=== PATIENT | female | born 1945 | race Caucasian/White ===

== ENCOUNTER → 2016-09-19 | Outpatient (CLI) | payer MEDICARE | LOC: COL.RAD 07:30 | DX: M51.36 Other intervertebral disc degeneration, lumbar region (principal) ==

== ENCOUNTER → 2016-10-11 | Outpatient (CLI) | payer MEDICARE | LOC: MHCPAIN 10:08 | DX: G89.29 Other chronic pain (principal); M47.817 Spondylosis without myelopathy or radiculopathy, lumbosacral region; M54.16 Radiculopathy, lumbar region; M25.561 Pain in right knee | CPT/HCPCS: G0463 ==

== ENCOUNTER → 2017-01-10 | Outpatient (CLI) | payer MEDICARE | LOC: MHCPAIN 10:05 | DX: G89.29 Other chronic pain (principal); M47.27 Other spondylosis with radiculopathy, lumbosacral region; M53.3 Sacrococcygeal disorders, not elsewhere classified | CPT/HCPCS: G0463 ==

== ENCOUNTER 2017-01-17 10:30 | Outpatient (RCR) | payer MEDICARE | END 2017-01-23 | LOC: WSPT | DX: M47.816 Spondylosis without myelopathy or radiculopathy, lumbar region (principal); M25.569 Pain in unspecified knee; M25.511 Pain in right shoulder; M25.512 Pain in left shoulder | CPT/HCPCS: G8978-GP; G8979-GP; G8980-GP ==

== ENCOUNTER → 2017-04-10 | Outpatient (CLI) | payer MEDICARE | LOC: MHCPAIN 10:02 | DX: G89.29 Other chronic pain (principal); M47.27 Other spondylosis with radiculopathy, lumbosacral region; M25.561 Pain in right knee | CPT/HCPCS: G0463 ==

== ENCOUNTER → 2017-07-02 | Outpatient (CLI) | payer MEDICARE | LOC: MHCPAIN 10:06 | DX: G89.29 Other chronic pain (principal); M47.27 Other spondylosis with radiculopathy, lumbosacral region; M53.3 Sacrococcygeal disorders, not elsewhere classified; M25.561 Pain in right knee | CPT/HCPCS: G0463 ==

== ENCOUNTER → 2017-09-20 | Outpatient (CLI) | payer MEDICARE | LOC: MC.RAD 11:40 | DX: Z12.31 Encounter for screening mammogram for malignant neoplasm of breast (principal) ==

== ENCOUNTER → 2017-09-25 | Outpatient (CLI) | payer MEDICARE | LOC: MHCPAIN 10:36 | DX: G89.29 Other chronic pain (principal); M47.27 Other spondylosis with radiculopathy, lumbosacral region; M53.3 Sacrococcygeal disorders, not elsewhere classified; M25.561 Pain in right knee | CPT/HCPCS: G0463 ==

== ENCOUNTER → 2017-10-04 | Outpatient (CLI) | payer MEDICARE | LOC: MHCPAIN 07:52 | DX: M47.27 Other spondylosis with radiculopathy, lumbosacral region (principal); M48.061 Spinal stenosis, lumbar region without neurogenic claudication | CPT/HCPCS: A9585; J1040; Q9967 ==

== ENCOUNTER → 2019-12-17 | Outpatient (CLI) | payer MEDICARE | LOC: MHCPAIN 14:13 | DX: M47.817 Spondylosis without myelopathy or radiculopathy, lumbosacral region (principal); M54.5 Low back pain; G89.29 Other chronic pain; M53.3 Sacrococcygeal disorders, not elsewhere classified; M54.16 Radiculopathy, lumbar region | CPT/HCPCS: G0463 ==

== ENCOUNTER → 2020-03-15 | Outpatient (CLI) | payer MEDICARE | LOC: MHCPAIN 10:16 | DX: M47.817 Spondylosis without myelopathy or radiculopathy, lumbosacral region (principal); M54.5 Low back pain; G89.29 Other chronic pain; M53.3 Sacrococcygeal disorders, not elsewhere classified | CPT/HCPCS: G0463 ==

== ENCOUNTER → 2020-04-01 | Outpatient (RCR) | payer MEDICARE | END | disposition home or self-care (01) | LOC: WSC → WSPT 01-20 09:15 → WSC 02-05 08:30 → WSPT 02-10 09:45 → WSC 02-12 10:15 → WSPT 03-02 09:15 → WSC 03-17 10:15 | DX: M47.26 Other spondylosis with radiculopathy, lumbar region (principal); M53.3 Sacrococcygeal disorders, not elsewhere classified ==

== ENCOUNTER 2020-04-12 09:00 | Outpatient (RCR) | payer MEDICARE | END 2020-05-08 14:31 | disposition home or self-care (01) | LOC: WSC 09:00 | DX: M47.816 Spondylosis without myelopathy or radiculopathy, lumbar region (principal); M17.9 Osteoarthritis of knee, unspecified ==

== ENCOUNTER → 2020-05-05 | Outpatient (CLI) | payer MEDICARE | LOC: MC.RAD 10:30 | DX: Z12.31 Encounter for screening mammogram for malignant neoplasm of breast (principal); Z78.0 Asymptomatic menopausal state ==

== ENCOUNTER → 2020-05-11 | Outpatient (CLI) | payer MEDICARE | LOC: MC.RAD 09:56 | DX: R92.0 Mammographic microcalcification found on diagnostic imaging of breast (principal); Z78.0 Asymptomatic menopausal state ==

== ENCOUNTER → 2020-05-20 | Outpatient (CLI) | payer MEDICARE | LOC: MC.RAD 10:00 | DX: N63.20 Unspecified lump in the left breast, unspecified quadrant (principal); R92.0 Mammographic microcalcification found on diagnostic imaging of breast | CPT/HCPCS: 30634 ==

== ENCOUNTER → 2020-07-07 | Outpatient (CLI) | payer MEDICARE ==
[~2020-07-07] MED LIST: AMOXICILLIN 8751 TAB PO; DIFLUCAN150 MG PO
== END ==
LOC: MHCPAIN 12:59
DX: M47.816 Spondylosis without myelopathy or radiculopathy, lumbar region (principal); M79.2 Neuralgia and neuritis, unspecified; M54.5 Low back pain; M53.3 Sacrococcygeal disorders, not elsewhere classified; M17.0 Bilateral primary osteoarthritis of knee; G89.29 Other chronic pain
CPT/HCPCS: G0463

== ENCOUNTER → 2020-10-13 | Outpatient (CLI) | payer MEDICARE | LOC: MHCPAIN 10:51 | DX: M47.816 Spondylosis without myelopathy or radiculopathy, lumbar region (principal); M53.3 Sacrococcygeal disorders, not elsewhere classified; M25.562 Pain in left knee; M25.561 Pain in right knee | CPT/HCPCS: G0463 ==

== ENCOUNTER 2020-12-18 07:01 | Emergency (ER) | payer MEDICARE ==
[~2020-12-18] VITALS: Ht 162.6 cm; Wt 82.7 kg
[2020-12-18 07:17] VITALS: TEMP 99
[2020-12-18] MEDS ORDERED: DIFLUCAN150 MG PO (08:08)
[2020-12-18] MEDS ORDERED: AMOXICILLIN 8751 TAB PO (08:08)
[2020-12-18 08:34] VITALS: BP 121/74; PULSE 64
== END 2020-12-18 08:39 | disposition home or self-care (01) ==
LOC: COL.ER 07:01
DX: L03.113 Cellulitis of right upper limb (principal); J45.909 Unspecified asthma, uncomplicated
CPT/HCPCS: J0696

== ENCOUNTER → 2021-01-19 | Outpatient (CLI) | payer MEDICARE | LOC: MHCPAIN 10:45 | DX: M47.816 Spondylosis without myelopathy or radiculopathy, lumbar region (principal); M25.561 Pain in right knee; M79.2 Neuralgia and neuritis, unspecified; M54.5 Low back pain | CPT/HCPCS: G0463 ==

== ENCOUNTER 2021-01-20 21:41 | Emergency (ER) | payer MEDICARE ==
[~2021-01-20] VITALS: Ht 170.2 cm; Wt 78.6 kg
[2021-01-20 22:13] VITALS: TEMP 97.4
[2021-01-20] MEDS ORDERED: AMOXICILLIN 8751 TAB PO (23:12)
[2021-01-20 23:34] VITALS: BP 114/78; PULSE 64
== END 2021-01-20 23:34 | disposition home or self-care (01) ==
LOC: COL.ER 21:41
DX: S61.451A Open bite of right hand, initial encounter (principal); J45.909 Unspecified asthma, uncomplicated; Z98.890 Other specified postprocedural states; W55.01XA Bitten by cat, initial encounter

== ENCOUNTER → 2021-01-26 | Outpatient (CLI) | payer MEDICARE | LOC: COL.RAD 11:38 | DX: M17.11 Unilateral primary osteoarthritis, right knee (principal); M23.41 Loose body in knee, right knee | CPT/HCPCS: G0463 ==

== ENCOUNTER → 2021-02-17 | Outpatient (CLI) | payer MEDICARE | LOC: MHCPAIN 09:58 | DX: M17.11 Unilateral primary osteoarthritis, right knee (principal); M25.561 Pain in right knee | CPT/HCPCS: J1040; Q9967 ==

== ENCOUNTER → 2021-04-26 | Outpatient (CLI) | payer MEDICARE | LOC: MHCPAIN 10:43 | DX: M25.561 Pain in right knee (principal); M79.2 Neuralgia and neuritis, unspecified; M47.896 Other spondylosis, lumbar region | CPT/HCPCS: G0463 ==

== ENCOUNTER → 2021-08-02 | Outpatient (CLI) | payer MEDICARE | LOC: MHCPAIN 08:45 | DX: M47.816 Spondylosis without myelopathy or radiculopathy, lumbar region (principal); M25.561 Pain in right knee; M79.2 Neuralgia and neuritis, unspecified | CPT/HCPCS: G0463 ==

== ENCOUNTER → 2021-08-29 | Outpatient (CLI) | payer MEDICARE | LOC: MHCPAIN 12:32 | DX: M25.561 Pain in right knee (principal); M17.11 Unilateral primary osteoarthritis, right knee | CPT/HCPCS: G0463; J1040; Q9967 ==

== ENCOUNTER → 2021-09-27 | Outpatient (CLI) | payer MEDICARE | LOC: MC.RAD 10:15 | DX: Z12.31 Encounter for screening mammogram for malignant neoplasm of breast (principal) ==

== ENCOUNTER → 2021-11-01 | Outpatient (CLI) | payer MEDICARE | LOC: MHCPAIN 10:21 | DX: M47.896 Other spondylosis, lumbar region (principal); M79.2 Neuralgia and neuritis, unspecified; M25.561 Pain in right knee | CPT/HCPCS: G0463 ==

== ENCOUNTER → 2022-02-01 | Outpatient (CLI) | payer MEDICARE | LOC: MHCPAIN 13:01 | DX: M25.561 Pain in right knee (principal); M79.2 Neuralgia and neuritis, unspecified; M47.896 Other spondylosis, lumbar region | CPT/HCPCS: G0463 ==

== ENCOUNTER → 2022-08-02 | Outpatient (CLI) | payer MEDICARE | LOC: MHCPAIN 10:27 | DX: M54.50 Low back pain, unspecified (principal); M25.561 Pain in right knee; M17.11 Unilateral primary osteoarthritis, right knee; G89.29 Other chronic pain | CPT/HCPCS: G0463 ==

== ENCOUNTER → 2023-07-13 | Outpatient (CLI) | payer MEDICARE ==
[~2023-07-13] MED LIST changes: +Iohexol 300 - 100 ML VIAL IV ONE; +NS 100 ML IV SCH
== END ==
LOC: COL.RAD 13:49
DX: R91.1 Solitary pulmonary nodule (principal)
CPT/HCPCS: Q9967

== ENCOUNTER → 2023-08-08 | Outpatient (CLI) | payer MEDICARE ==
[~2023-08-08] MED LIST changes: -Iohexol 300 - 100 ML VIAL IV ONE; -NS 100 ML IV SCH
== END ==
LOC: MHCPAIN 13:27
DX: M25.561 Pain in right knee (principal); M47.896 Other spondylosis, lumbar region; G89.29 Other chronic pain
CPT/HCPCS: G0463

== ENCOUNTER → 2023-08-31 | Outpatient (CLI) | payer MEDICARE | LOC: MC.RAD 14:06 | DX: Z12.31 Encounter for screening mammogram for malignant neoplasm of breast (principal) ==

== ENCOUNTER → 2024-01-23 | Outpatient (CLI) | payer MEDICARE | LOC: MHCPAIN 14:25 | DX: M47.816 Spondylosis without myelopathy or radiculopathy, lumbar region (principal); M54.50 Low back pain, unspecified; M17.11 Unilateral primary osteoarthritis, right knee | CPT/HCPCS: G0463 ==